=== PATIENT | male | born 1940 | race Caucasian/White ===

== ENCOUNTER 2018-04-07 13:07 | Inpatient (IN) | payer OTHER ==
[~2018-04-07] VITALS: Ht 172.7 cm; Wt 107.0 kg
[2018-04-07 13:08] VITALS: BP 116/67
[2018-04-07 13:28] LABS: ABSOLUTE BASOPHILS 0.1 thou/uL (0.0-0.2); ABSOLUTE EOSINOPHILS 0.1 thou/uL (0.0-0.7); ABSOLUTE LYMPHOCYTES 2.5 thou/uL (0.8-5.3); ABSOLUTE MONOCYTES 0.8 thou/uL (0.0-1.2); ABSOLUTE NEUTROPHILS 4.5 thou/uL (1.6-8.1); BASOPHILS 0.8 %; EOSINOPHILS 1.1 %; HEMATOCRIT 44.8 % (42.0-52.0); HEMOGLOBIN 14.9 gm/dL (14.0-18.0); MCH 27.1 pg (26.0-34.0); MCHC 33.2 g/dL (28.0-37.0); MCV 81.7 fL (80.0-100.0); MONOCYTES 9.8 %; MPV 7.8 fl. (7.2-11.1); NUCLEATED RBCS 0 /100WBC; PLATELET COUNT* 179 thou/uL (150-400); POLYS 57.3 %; RBC 5.48 mil/uL (4.50-6.00); RDW-CV 13.8 % (10.5-14.5); WBC 7.9 thou/uL (4.0-11.0)
[2018-04-07 13:34] LABS: CALCIUM 8.6 mg/dL (8.5-10.1); CREATININE 1.3 mg/dL (0.6-1.3); POTASSIUM 3.6 mmol/L (3.5-5.1)
[2018-04-07 13:35] LABS: INR 1.2; PROTIME 11.4 Seconds (9.20-11.50)
[2018-04-07 13:44] LABS: ALBUMIN 3.1 g/dL (3.4-5.0); TOTAL BILIRUBIN 0.6 mg/dL (<0.1-1.0); TOTAL PROTEIN 6.4 g/dL (6.4-8.2); TROPONIN-I LEVEL 0.09 ng/mL (<0.06)
[2018-04-07] MEDS ORDERED: LISINOPRIL20 MG PO (16:31)
[2018-04-07] MEDS ORDERED: ATORVASTATIN CA40 MG PO (16:31)
[2018-04-07] MEDS ORDERED: PROTONIX40 M1 PO (16:31)
--- NOTE | 2018-04-07 16:32 | EKG ---
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
[2018-04-07 17:47] VITALS: BP 126/72
[2018-04-07 17:53] VITALS: BP 129/77
[2018-04-07 19:19] LABS: CHOLESTEROL 219 mg/dL (<200); HDL CHOLESTEROL 34 mg/dL (>40); LDL CHOLESTEROL 140 mg/dL (<100); TC:HDL 6.4 Ratio (Not establshd); TRIGLYCERIDE 227 mg/dL (<150); VLDL 45 mg/dL (<40)
[2018-04-07 19:20] LABS: SERUM ASSESSMENT Clear
--- NOTE | 2018-04-07 19:26 | NUR ---
SAM RESTING IN BED. ADMISSION COMPLETED. ORDERS RECEIVED. REPORT GIVEN TO DENTAL LABORATORY WORKER RN. HOURLY ROUNDNIG FOR PATIENT SAFETY.
[2018-04-07 20:00] VITALS: BP 117/70
[2018-04-08] VITALS (14 sets, daily range): BP systolic 97–147; BP diastolic 60–106
--- NOTE | 2018-04-08 04:42 | NUR ---
PT ALERT ORIENTED. R EYE PROSTHETIC CURRENTLY OUT AND PLACED ON SINK. TELEMETRY SHOW SR. BED ALARM ON. UP WITH STAND BY ASSIST. STEADY GAIT. DENIES PAIN. WILL CONTINUE TO MONITOR.
--- NOTE | 2018-04-08 09:09 | NUR ---
PT CARE ASSUMED AROUND 0700. ASSESSMENT COMPLETED. PT DENIES PAIN. PT MADE NPO FOR CARDIOLOGY CONSULT. CARDIOLOGY OKAYED PT FOR CLD, BUT RENAL US IS ORDERED NOW. SO WILL MAINTAIN NPO UNTIL THAT IS DONE
[2018-04-08 11:59] LABS: BE 0.6 mmol/L (-2 to +3); HCO3 25.9 mmol/L (22.0-26.0); PO2 64.2 mmHg (75.0-100.0); pH 7.388 (7.340-7.450)
--- NOTE | 2018-04-08 12:01 | NUR ---
Pt out of room for heart cath, the ultra sound, CM to follow up later
[2018-04-08 12:02] LABS: BE 1.9 mmol/L (-2 to +3); HCO3 27.7 mmol/L (22.0-26.0); PCO2 VENOUS 47.1 mmHg (41.0-51.0)
[2018-04-08 12:08] LABS: PO2 VENOUS 34.9 mmHg (35.0-45.0)
--- NOTE | 2018-04-08 13:15 | 2DMMODE ---
[place] [address] 2 D/M-MODE ECHOCARDIOGRAM Name: KRIS DURHAM Room: [address] IN [facility]#: [id number] Admission: 04/07/18 Attend Phys: Siddhartha See Discharge: Date of : 44 Date of Service: 04/08/18 1315 Report #: [id number] THIS REPORT FOR: //name// APPROVED REPORT Study performed: 04/08/2018 09:25:52 EXAM: Comprehensive 2D, Doppler, and color-flow Echocardiogram Patient Location: In-Patient Room #: [facility] Status: routine BSA: 2.17 HR: 75 bpm BP: 136/71 mmHg Rhythm: NSR Other Information Study Quality: Good Indications Pulmonary Embolism 2D Dimensions LVEF(%): 32.12 (>50%) IVSd: 15.74 (7-11mm) LVOT Diam: 19.76 (18-24mm) LVDd: 51.88 mm PWd: 12.54 (7-11mm) Ascending Ao: 32.87 (22-36mm) LVDs: 43.95 (25-40mm) Aortic Root: 36.09 mm Madden's LVEF: 32.12 % Volumes Left Atrial Volume (Systole) LA ESV Index: 38.90 mL/m2 Aortic Valve AoV Peak Riley.: 3.97 m/s AO Peak Gr.: 62.98 mmHg LVOT Max P.39 mmHg AO Mean Gr.: 41.53 mmHg LVOT Mean P.34 mmHg LVOT Max V: 0.77 m/s AO V2 VTI: 95.91 cm LVOT Mean V: 0.54 m/s RALÚ (VTI): 0.56 cm2 LVOT V1 VTI: 17.52 cm AI Vinton: 2.21 m/s2 AI PHT: 531.27 [place] [address] 2 D/M-MODE ECHOCARDIOGRAM Name: KRIS DURHAM Room: [address] IN [facility].#: [id number] Admission: 04/07/18 Attend Phys: Siddhartha See Discharge: Date of : 44 Date of Service: 04/08/18 1315 Report #: [id number] Mitral Valve E/A Ratio: 0.58 MV Decel. Time: 215.48 ms MV E Max Riley.: 0.70 m/s MV PHT: 62.49 ms MVA (PHT): 3.52 cm2 TDI E/Lateral E': 8.75 E/Medial E': 11.67 Medial E' Riley.: 0.06 m/s Lateral E' Riley.: 0.08 m/s Pulmonary Valve PV Peak Riley.: 0.95 m/s PV Peak Gr.: 3.64 mmHg Left Ventricle The left ventricle is normal size. There is global hypokinesis of the left ventricle. Mild to moderate concentric left ventricular hypertrophy. Left ventricular systolic function is severely decreased. LVEF is 25-30%. Grade I - abnormal relaxation pattern. Right Ventricle The right ventricle is normal size. The right ventricular systolic function is normal. Atria Left atrium is moderately dilated. The right atrium size is normal. Aortic Valve Severe aortic valve sclerosis. Trace aortic regurgitation. Severe aortic stenosis. Mitral Valve The mitral valve is normal in structure. Mild mitral regurgitation. No evidence of mitral valve stenosis. Tricuspid Valve The tricuspid valve is normal in structure. Trace tricuspid regurgitation. Pulmonic Valve Pulmonic valve is not well visualized. There is no pulmonic [place] [address] 2 D/M-MODE ECHOCARDIOGRAM Name: KRIS DURHAM Room: [address] IN [facility]#: [id number] Admission: 04/07/18 Attend Phys: Siddhartha See Discharge: Date of : 44 Date of Service: 04/08/18 1315 Report #: [id number] Great Vessels The aortic root is normal in size. IVC is normal in size and collapses with >50% inspiration Pericardium There is no pericardial effusion. <Conclusion> Mild to moderate concentric left ventricular hypertrophy. LVEF is 25-30%. Left atrium is moderately dilated. Severe aortic stenosis. Mild mitral regurgitation. <ELECTRONICALLY SIGNED> By: Bandar Garcia MD, FACC 04/08/18 1315 1315 131 Bandar Garcia MD, FACC /INF
--- NOTE | 2018-04-08 15:32 | CARD ---
[address] [address] CARDIAC CATH REPORT Name: MARVAKRIS Seth Room: [address] IN [facility]#: [id number] Admission: 04/07/18 Attend Phys: Dre العلي Discharge: Date of : 44 Report #: [id number] THIS REPORT FOR: //name// APPROVED REPORT Study performed: 04/08/2018 10:32:40 Patient Details Patient Status: In-Patient Room #: 214 The patient is a 77 year-old male Event Personnel Bandar Garcia Livestock Producer, Arlene Morley RN Sampler Radioactive Waste, Jerica Pino RN Sampler Radioactive Waste, Marietta Knutson Monitor, Blade Gaytan Scrub Procedures Performed Art Access - R femoral artery* , Selective Right and Left Coronary AngiographyVen Access - R femoral vein Right and Left Heart Cath Lt Vent/Cors/Grafts [id number] Supravalvular Aortography Injection [id number] ISVA Indication Syncope, Murmur Risk Factors Arterial Hypertension, Hypercholesterolemia Procedure Narrative The patient was brought electively to the Cardiac Catheterization Laboratory and was prepped and draped in a sterile manner. The right femoral was infiltrated with 2% Lidocaine subcutaneous anesthesia. A Right Heart Catheterization was performed with a 7 Fr. Vaughn-Damian catheter and pressure were recorded. Cardiac outputs were obtained by the Thermal Dilution method. A 7Fr x 11cm Kiarra sheath was inserted into the right femoral artery. Coronary angiography was performed using coronary diagnostic catheters. The right coronary system was accessed and visualized with a Diagnostic JR 4 catheter. The left coronary system was accessed and visualized with a Diagnostic JL4 catheter. The left ventricle was accessed and visualized with a dual lumen pigtail catheter. Left ventricular/Aortic Valve gradient assessed via alexis catheter with simultaneous pressures. Left ventriculogram was performed in ENNIS projection. An aortogram of the ascending aorta was performed. Closure device was deployed with a 6 Fr MynxGrip 6/7F. Hemostasis was obtained [place] [address] CARDIAC CATH REPORT Name: KRIS DURHAM Room: [address]#: [id number] Admission: 04/07/18 Attend Phys: Dre العلي Discharge: Date of : 44 Report #: [id number] following sheath removal without any complications. The patient tolerated the procedure well and there were no complications associated with the procedure. There was no hematoma. Intraoperative Conscious Sedation Sedation start time: 11:23 Case end Time: 12:15 Versed 2 mg Fluoro Time: 4.4 minutes Dose: DAP 56904 cGycm2 986.91 mGy Contrast Type and Amount: Omnipaque 130 ml Coronary Angiography The patient's coronary anatomy is right dominant. Diagnostic Cath Left Main 30% mid stenosis LAD 50% mid stenosis Diagonal 2 50% ostial stenosis and 80% after bifurcating L ALAN 80% mid stenosis Right Coronary 30% proximal stenosis Ramus 0% stenosis Left Ventriculography The left ventricular ejection fraction is estimated to be 25-30%. There is no mitral insufficiency. Hemodynamics The right atrial mean pressure is 4 mmHg. The right ventricular pressure is 36/5 mmHg. The pulmonary artery pressure is 28/10 mmHg with a mean of 15 mmHg. The mean pulmonary capillary wedge pressure is 12 mmHg. The aortic pressure is 121/72 mmHg with a mean of mmHg. The left ventricular pressure is 157/11 mmHg with a mean of mmHg. The left ventricular end diastolic pressure is 12 mmHg. Pullback from the left ventricle to the aorta revealed a 40 mm gradient across the aortic valve. PaO2 saturation is 71.00 %. Arterial saturation is 92.00 %. The cardiac output using thermo method is 4.93 L/min. The cardiac index using thermo method is 2.26 L/min/m2. The mean aortic valve gradient is 36.78 mmHg. The aortic valve area is 0.8 cm2. Conclusion 1. Severe cardiomyopathy 2. Severe aortic stenosis 3. [place] [address] CARDIAC CATH REPORT Name: KRIS DURHAM Room: [address] IN M.R.#: [id number] Admission: 04/07/18 Attend Phys: Dre العلي Discharge: Date of : 44 Report #: [id number] Recommendations Valve Surgery CABG Medications Administered 1. recommend discharge with LifeVest <ELECTRONICALLY SIGNED> By: Bandar Garcia MD, FACC 04/08/18 1531 1531 1531Djean carlos Garcia MD, [facility] /INF
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
[2018-04-09] VITALS: BP 125/69
[2018-04-09 02:06] LABS: GLYCOHEMOGLOBIN (HGB A1C) 5.7 % (4.8-5.6)
[2018-04-09 04:00] VITALS: BP 111/60
--- NOTE | 2018-04-09 06:57 | NUR ---
ASSUMED PT CARE AT 19:15 REPORT RECEIVED FROM NURSE. PT IS ALERT AWAKE, ORIENTED X4. SINUS RYTHM ON THE MONITOR. VITAL SIGN S WITHIN NORMAL LIMIT. O2 SATURATION 95% ON RA. IV LINE PATENT. R GROIN AREA IS DRY, DRESING INTACT NO COMPLAIN OF PAIN EXCEPT FOR HEADACHE LAST NIGHT. TYLENOL WAS GIVEN FOR RELIEF. PT SLEPT WELL DURING NIGHT AND SAYS HE NEEDS A SHOWER THIS AM.
--- NOTE | 2018-04-09 07:25 | NUR ---
CHANGE OF SHIFT BEDSIDE REPORT GIVEN PATIENT SEEN AT BEDSIDE IN BED AND RESTING NO REQUESTS AT THIS TIME ASSUMED PATIENT CARE
[2018-04-09 07:45] VITALS: BP 117/79
[2018-04-09 08:00] VITALS: BP 150/113
--- NOTE | 2018-04-09 15:17 | NUR ---
CM ATTEMPTED TO SEE THE PATIENT TO ASSESS AND DISCUSS DISCHARGE PLANNING NEEDS. PATIENT HAVING EEG DONE AT THIS TIME. CM WILL ATTEMPT TO ASSESS PATIENT AT ANOTHER TIME.
[2018-04-09 16:00] VITALS: BP 120/78
[2018-04-09] MEDS ORDERED: ASPIR 8181 M1 PO (18:32)
[2018-04-09] MEDS ORDERED: ALDACTONE25 MG PO (18:37)
[2018-04-09] MEDS ORDERED: CARVEDILOL3.125 MG PO (18:38)
[2018-04-09] MEDS ORDERED: XARELTO15 MG PO (18:42)
[2018-04-09 18:48] VITALS: BP 117/79
--- NOTE | 2018-04-09 19:30 | NUR ---
PATIENT DCD TO HOME ALL DC INSTRUCTIONS GIVEN AND ACKNOWLEDGED AND SIGNED COPIES GIVEN IV AND HEART MONITOR REMOVED PERSONAL BELONGINGS RETURNED ASSISTED OUT VIA WC GOOD CONDITION TO WAITING CAR
--- NOTE | 2018-04-11 14:39 | NUR ---
Spoke wit the patient by phone, states he is doing well, no chest pain or shortness of breath, his weight has been stable, is following a low salt diet, shared the heart healthy diet book with his , does not have his life vest yet, is working with the [employer] on getting his vest, has a follow up appointment with Dr. Mattson DRY CAN TENDER on wednesday04/15/18, has no questions for me at this time.
--- NOTE | 2018-04-13 12:20 | EEG ---
[address] [address] EEG STUDY REPORT Name: KRIS DURHAM Room: [address] IN M.R.#: [id number] Admission: 04/07/18 Attend Phys: Dre العلي Discharge: 04/09/18 Date of : 44 Report #: [id number] THIS REPORT FOR: //name// CC: Teo Jasso Siddhartha See DATE OF SERVICE: 04/09/2018 This patient is being evaluated for syncope. EEG was done by placing the electrode by standard 10-20 system of electrode placement. Both referential and sequential montages were used for recording. Background activity in this patient's EEG is about 10 Hz and 40 microvolt. This is a symmetrical activity. Moderate amount of artifact is present. So, part of the EEG is not interpretable. The patient does become drowsy that is associated with bilateral slowing. Photic stimulation is unremarkable. Throughout the record, no active epileptiform activity was noticed. IMPRESSION: This patient's EEG does not demonstrate any clear-cut electrophysiological abnormality. <ELECTRONICALLY SIGNED> By: Andres Morel MD 04/13/18 1220 2138 [id number] Morel MD /nt
--- NOTE | 2018-04-13 12:20 | CON ---
[address] [address] CONSULTATION Name: KRIS DURHAM Room: [address] IN .R.#: [id number] Admission: 04/07/18 Attend Phys: Dre العلي Discharge: 04/09/18 Date of : 44 Report #: [id number] THIS REPORT FOR: //name// CC: Teo See DATE OF SERVICE: 04/09/2018 HISTORY OF PRESENT ILLNESS: This is a 77-year-old male patient who was seen by me this morning. I talked to Dr. Carranza and I talked to the nurses looking after this patient. This patient was seen by me for evaluation for any neurological etiology for the patient's passing out spell. He indicated that it happened twice. He was outside, but then he came inside and then passed out. He did not have any tonic-clonic activity. It lasted just for a few seconds. He was able to lower himself down and he did not fall. He did not injure himself. He had 2 of these episodes. He is being evaluated by Cardiology. It looks like his ejection fraction is low and he has a severe aortic stenosis. They are going to manage him as an outpatient. REVIEW OF SYSTEMS: Indicate this patient had 2 of these episodes. He did not have any prior episodes of passing out. He denies any stroke. 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 He had a history of stomach ulcer and hypertension. He did have appendectomy in the past and he is not complaining of any new ENT, respiratory, GI, , musculoskeletal, constitutional, dermatological, hematological, psychiatric, throat, allergic symptom associated with present symptomatology. PAST MEDICAL HISTORY: Negative for stroke. FAMILY HISTORY: Negative for any early age stroke. SOCIAL HISTORY: This patient has smoked in the past, but he does not do it now and he does not drink alcohol. PHYSICAL EXAMINATION: NEUROLOGIC: Indicates he is alert. He is responsive. He can follow simple commands. His speech, concentration, fund of knowledge and memory is at his baseline. Cranial nerve examination 2-12 looks unremarkable except for the fact that he does have an artificial eye, which is old. He has a symmetrical strength, sensation, reflexes in all 4 extremities. He does not have any meningeal sign. There is no cerebellar sign. There is no carotid bruit. GENERAL: He is a reasonably well-developed individual who does not have any dysmorphic features of eyes, ears and face except artificial eye on the right side. His vision and hearing looks adequate with the left . EXTREMITIES: Pulses are palpable. He has no edema, cyanosis or jaundice. HEART: Does show murmur, but that is being [place] [address] CONSULTATION Name: KRIS DURHAM Room: [address] IN [facility]#: [id number] Admission: 04/07/18 Attend Phys: Dre العلي Discharge: 04/09/18 Date of : 44 Report #: [id number] RESPIRATORY: There is no respiratory difficulty or rhonchi on either side. VITAL SIGNS: Blood pressure is 150/113, respirations 19, pulse is 80, temperature is 98.7. LABORATORY DATA: His sodium is normal, but his lipid profile is still pretty significantly abnormal. He indicated he is on statin. His MRI studies were ordered this morning and were reviewed and his EEG was reviewed. They are basically looks unremarkable. IMPRESSION: I do not believe the etiology for the patient's symptoms were neurological. I think his workup and management will be done by Cardiology. He does have still significant dyslipidemia, which also need to be addressed by his primary care and intake coordinator. I discussed the situation with the patient in detail and he understood that. My recommendation is that he does not need any further neurological workup. Presently, the management and evaluation should depend upon the Cardiology. His restrictions will also be decided by Cardiology, but it is desirable and it was recommended that he should not drive until he is released by his Cardiology as well as family physician and take precautions, which can injure him if he has another spell. I do not think he needs any Neurology followup, but he does need Cardiology and other followup and I wrote an order for him to be dismissed from neurological perspective. Thank you very much for this referral. <ELECTRONICALLY SIGNED> By: Andres Morel MD 04/13/18 1220 1746 1944Pcristofer Morel MD /nt
== END 2018-04-09 19:30 | disposition home or self-care (01) | DRG 280 ==
LOC: M.ERS 13:07 → M.2W 15:54 → M.TBA-ER 15:54 → M.2W 17:46
PROVIDERS: Emergency Medicine; ADMIT Internal Medicine
PROC: B2111ZZ Fluoroscopy of Multiple Coronary Arteries using Low Osmolar Contrast (ICD-10-PCS; principal; 2018-04-08)
PROC: B2151ZZ Fluoroscopy of Left Heart using Low Osmolar Contrast (ICD-10-PCS; principal; 2018-04-08)
PROC: 4A023N7 Measurement of Cardiac Sampling and Pressure, Left Heart, Percutaneous Approach (ICD-10-PCS; principal; 2018-04-08)
DX: I21.4 Non-ST elevation (NSTEMI) myocardial infarction (principal); J96.01 Acute respiratory failure with hypoxia; I26.99 Other pulmonary embolism without acute cor pulmonale; I42.9 Cardiomyopathy, unspecified; N18.9 Chronic kidney disease, unspecified; I12.9 Hypertensive chronic kidney disease with stage 1 through stage 4 chronic kidney disease, or unspecified chronic kidney disease; E78.5 Hyperlipidemia, unspecified; I35.0 Nonrheumatic aortic (valve) stenosis; J42 Unspecified chronic bronchitis; I25.10 Atherosclerotic heart disease of native coronary artery without angina pectoris; K21.9 Gastro-esophageal reflux disease without esophagitis; Z87.891 Personal history of nicotine dependence; Z90.49 Acquired absence of other specified parts of digestive tract; Z79.899 Other long term (current) drug therapy

== ENCOUNTER 2020-11-30 10:31 | Inpatient (IN) | payer BC ==
[~2020-11-30] VITALS: Ht 182.9 cm; Wt 87.9 kg
--- NOTE | ~2020-11-30 | EMS ---
[address] [place] [address] EMS Patient Care Report Name: KRIS DURHAM Room: [address] IN [facility]#: [id number] Admission: 11/30/20 Attend Phys: Melania Mooney Discharge: Date of : 44 Report #: [id number] THIS REPORT FOR: //name// Report Transmitted: 11/30/2020 15:20 EMS Care Summary [facility] Incident [id number] @ 11/30/2020 09:58 Incident Location [address] [place] [address] Patient KRIS DURHAM Male, 80 Years 1940 Patient Address [address] [place] [address] Patient History Hypertension (HTN),Hyperlipidemia,Gastro-Esophageal Reflux Disease (GERD),Cardiac - Stent, Patient Allergies No known allergies, Patient Medications Pantoprazole, Xarelto, Metoprolol, Chief Complaint Chest Pain Disposition Transported No Lights/[facility] Dispatch Reason Stroke/CVA Transported To [facility] Narrative Engine 2 and Med 1 were dispatched for a [age] year-old male c/o chest pain. Upon arrival, patients met us at the door and directed us to a back bedroom where the patient was lying supine on the bed with snoring respirations [address] [place] [address] EMS Patient Care Report Name: KRIS DURHAM Room: [address] IN [facility]#: [id number] Admission: 11/30/20 Attend Phys: Melania Mooney Discharge: Date of : 44 Report #: [id number] and dried blood on the side of his mouth. Patient's reported that she saw him around 7AM and he was c/o severe chest pain. He told his he would be fine and let him lay there for awhile. She went to check on him and found him unresponsive and called 911. Patient was placed on Oxygen via NRB at 15 lpm, patient's blood glucose was obtained with a reading of 185mg.dL, patient was placed on the school bus monitor and a 12 lead was obtained and it shown NSR with occasional PVC's. 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 Patient's denied him falling recently. Patient was wrapped in the blanket he was laying on and moved to the stretcher and secured via seatbelts. Patient was moved into the ambulance without incident. In the ambulance, IV access was attempted but patient was combative. A saline lock was obtained in the patients right AC with a 20 GA IV catheter and secured with coban. Med 1 went en route to [facility]. Patient began to become more coherent in transport and denied being in any pain but was still not able to answer any other questions. Hospital report was given via cell phone and the hospital was notified of a Code Stroke with no questions or orders requested or received. Med 1 arrived at the hospital. Patient was taken directly to CT Scan. Patient care was transferred to the ER staff in the CT room. Med 1 returned back into service. [id number] Pricila Initial Vitals @10:31 @10:07 @10:44 @10:43P: 85,SpO2: 98, @10:04P: 82,BP: 137/55,SpO2: 96, @10:43P: 82,BP: 99/67,SpO2: 98, @10:35P: 88,GCS: 10,Glucose: 185,SpO2: 97, @10:14P: 98,R: 16,BP: 116/84,GCS: 9,SpO2: 96,Revised Trauma: 11, @10:40P: 81,BP: 117/51,SpO2: 96, @10:34P: 88,SpO2: 97, @10:19P: 94, @10:43 Assessments @10:36MENTAL:Combative,Unresponsive,SKIN:HEENT:Eyes: Right: Blind,Eyes: Left: Constricted,Head/Face: Drainage,Neck/Airway: Stridor,LUNG SOUNDS:General: No Abnormalities,Left Upper: No Abnormalities,Right Upper: No Abnormalities,Left Lower: No Abnormalities,Right Lower: No Abnormalities,ABDOMEN:General: [place] [address] EMS Patient Care Report Name: KRIS DURHAM Room: [place] [address] ADM IN [facility].#: [id number] Admission: 11/30/20 Attend Phys: Melania Mooney Discharge: Date of : 44 Report #: [id number] Abnormalities,Left Upper: No Abnormalities,Right Upper: No Abnormalities,Left Lower: No Abnormalities,Right Lower: No Abnormalities,PELVIS//GI:EXTREMITIES:Left Arm: No Abnormalities,Right Arm: No Abnormalities,Left Leg: No Abnormalities,Right Leg: No Abnormalities,PULSE:NEURO:No Abnormalities, Impression Stroke Procedures @11:11Saline Lock cc (20 ga) Site: Antecubital-LeftResponse: UnchangedFailed@11:12Saline Lock 10cc (20 ga) Site: Antecubital-RightResponse: UnchangedSucceeded@10:2612-Lead ECG@10:0712-Lead ECG@10:4312-Lead ECG@10:3112-Lead ECG@10:4412-Lead ECG Timeline 09:58,Call Received 09:58,Dispatched 09:58,En Route 10:00,On Scene 10:01,At Patient 10:04,BP: 137/55 M,PULSE: 82,RR: R,SPO2: 96 Ox,ETCO2: ,BG: ,PAIN: ,GCS: , 10:07,12-Lead ECG, 10:07,BP: / M,PULSE: ,RR: R,SPO2: Ox,ETCO2: ,BG: ,PAIN: ,GCS: , 10:14,BP: 116/84 M,PULSE: 98,RR: 16 R,SPO2: 96 Ox,ETCO2: ,BG: ,PAIN: ,GCS: 9, 10:19,BP: / M,PULSE: 94,RR: R,SPO2: Ox,ETCO2: ,BG: ,PAIN: ,GCS: , 10:23,Depart Scene 10:26,12-Lead ECG, 10:31,12-Lead ECG, 10:31,BP: / M,PULSE: ,RR: R,SPO2: Ox,ETCO2: ,BG: ,PAIN: ,GCS: , 10:34,BP: / M,PULSE: 88,RR: R,SPO2: 97 Ox,ETCO2: ,BG: ,PAIN: ,GCS: , 10:35,BP: / M,PULSE: 88,RR: R,SPO2: 97 Ox,ETCO2: ,B,PAIN: ,GCS: 10, 10:40,BP: 117/51 M,PULSE: 81,RR: R,SPO2: 96 Ox,ETCO2: ,BG: ,PAIN: ,GCS: , 10:43,12-Lead ECG, 10:43,BP: / M,PULSE: ,RR: R,SPO2: Ox,ETCO2: ,BG: ,PAIN: ,GCS: , 10:43,BP: 99/67 M,PULSE: 82,RR: R,SPO2: 98 Ox,ETCO2: ,BG: ,PAIN: ,GCS: , 10:43,BP: / M,PULSE: 85,RR: R,SPO2: 98 Ox,ETCO2: ,BG: ,PAIN: ,GCS: , 10:44,At Destination 10:44,12-Lead ECG, 10:44,BP: / M,PULSE: ,RR: R,SPO2: Ox,ETCO2: ,BG: ,PAIN: ,GCS: , 11:11,Saline Lock cc 20 ga Site: Antecubital-Left,Response: UnchangedFailed, 11:12,Saline Lock 10cc 20 ga Site: Antecubital-Right,Response: UnchangedSucceeded, 11:17,Call Closed 11:17,[place] [address] EMS Patient Care Report Name: KRIS DURHAM Room: [place] [address] ADM IN [facility]#: [id number] Admission: 11/30/20 Attend Phys: Melania Mooney Discharge: Date of : 44 Report #: [id number] Disclaimer v1.1 Copyright 2021 [employer] This EMS Care Summary contains data elements from the applicable legal record (which may be displayed differently). It is designed to provide pertinent information for the following purposes: continuity of care, clinical quality, and state data reporting. The complete legal record is available to ED staff and administrators of the receiving hospital in [employer] Patient Tracker. All data is provided "as is."
[~2020-11-30 10:31] MED LIST: ALDACTONE25 MG PO; ASPIR 8181 M1 PO; ATORVASTATIN CA40 MG PO; CARVEDILOL3.125 MG PO; LISINOPRIL20 MG PO; PROTONIX40 M1 PO; XARELTO20 MG PO
[2020-11-30 10:44] VITALS: BP 97/42
[2020-11-30] MEDS ORDERED: ENTRESTO 49 MG1 EACH PO (10:57)
[2020-11-30] MEDS ORDERED: TOPROL XL50 MG PO (10:58)
[2020-11-30 11:05] LABS: HEMATOCRIT 49.8 % (42.0-52.0); HEMOGLOBIN 16.3 gm/dL (14.0-18.0); MCH 27.1 pg (26.0-34.0); MCHC 32.8 g/dL (28.0-37.0); MCV 82.5 fL (80.0-100.0); MPV 7.1 fl. (7.2-11.1); NUCLEATED RBCS 0 /100WBC; PLATELET COUNT* 195 thou/uL (150-400); RBC 6.03 mil/uL (4.50-6.00); RDW-CV 13.6 % (10.5-14.5); WBC 13.7 thou/uL (4.0-11.0)
[2020-11-30 11:13] LABS: APTT 24.9 Seconds (25.0-31.3); CALCIUM 9.8 mg/dL (8.5-10.1); CREATININE 1.9 mg/dL (0.6-1.3); INR 1.1; PROTIME 12.1 Seconds (9.20-11.50)
[2020-11-30 11:17] LABS: ALBUMIN 3.7 g/dL (3.4-5.0); TOTAL BILIRUBIN 0.7 mg/dL (<0.1-1.0); TOTAL PROTEIN 7.2 g/dL (6.4-8.2)
[2020-11-30 11:41] LABS: ABSOLUTE LYMPHOCYTES 1.4 thou/uL (0.8-5.3); ABSOLUTE MONOCYTES 0.5 thou/uL (0.0-1.2); ABSOLUTE NEUTROPHILS 11.8 thou/uL (1.6-8.1); PLATELET ESTIMATE ADEQUATE
[2020-11-30 11:42] LABS: ANISOCYTOSIS 1+; POIKILOCYTOSIS 1+
[2020-11-30 16:05] VITALS: BP 103/65
[2020-11-30 20:10] VITALS: BP 103/65
[2020-11-30 23:55] VITALS: BP 138/51
[2020-12-01 04:00] VITALS: BP 141/64
[2020-12-01 04:45] LABS: CHOLESTEROL 131 mg/dL (<200); HDL CHOLESTEROL 33 mg/dL (>40); LDL CHOLESTEROL 80 mg/dL (<100); TRIGLYCERIDE 91 mg/dL (<150); VLDL 18 mg/dL (<40)
[2020-12-01 05:16] LABS: SERUM ASSESSMENT CLEAR
--- NOTE | 2020-12-01 07:36 | NUR ---
ASSUMED PT'S CARE @ ABOUT 1999. PT ADMITTED TO RM 204 FROM ER. ORIENTED TO RM AND CALL LIGHT. PT ALERT AND ORIENTED X4. FORGETFUL. NIH SCORE OF 3. COMPLAINTS OF SHOULDER PAIN. NORCO GIVEN. PT NOW NPO. FALL PRECAUTION IN PLACE. CALL LIGHT WITHIN REACH. PT CALL OUT APPRIOPRATELY. CALL LIGHT WITHIN REACH. HOURLY ROUNDINGS MADE. WILL CONTINUE TO MONITOR.
[2020-12-01 08:00] VITALS: BP 152/72
[2020-12-01 09:24] LABS: ALBUMIN 3.5 g/dL (3.4-5.0); CALCIUM 9.5 mg/dL (8.5-10.1); CREATININE 1.5 mg/dL (0.6-1.3); POTASSIUM 3.8 mmol/L (3.5-5.1); TOTAL PROTEIN 6.4 g/dL (6.4-8.2)
[2020-12-01 12:17] VITALS: BP 139/75
[2020-12-01 15:24] LABS: URINE BILIRUBIN NEGATIVE (Negative); URINE BLOOD NEGATIVE (Negative); URINE CLARITY CLEAR; URINE COLOR YELLOW; URINE GLUCOSE-RANDOM NEGATIVE (Negative); URINE KETONES TRACE (Negative); URINE LEUKOCYTES NEGATIVE (Negative); URINE NITRITE NEGATIVE (Negative); URINE PROTEIN NEGATIVE (Negative); URINE SPECIFIC GRAVITY 1.025 (1.005-1.030); URINE UROBILINOGEN 0.2 E.U./dl (0.2-1.0)
[2020-12-01 16:16] VITALS: BP 121/70
--- NOTE | 2020-12-01 17:13 | NUR ---
PATIENT ALERT AND ORIENTED X 4. VITAL SIGNS STABLE ON ROOM AIR. UP WITH STAND BY ASSISTANCE TO THE BATHROOM. IV PATENT AND SALINE LOCKED. SINUS RHYTHM WITH BUNDLE BRANCH BLOCK ON THE MONITOR. DENIES PAIN AND NAUSEA AT THIS TIME. FALL PRECAUTIONS IN PLACE AND BED ALARM ON. HOURLY ROUNDS MAINTAINED THROUGHOUT THE SHIFT. CALL LIGHT WITHIN REACH.
[2020-12-01 20:00] VITALS: BP 145/70
[2020-12-02 00:34] VITALS: BP 146/80
[2020-12-02 04:48] VITALS: BP 148/75
--- NOTE | 2020-12-02 06:19 | NUR ---
ASSUMED PT'S CARE @ ABOUT 1900. PT ALERT AND ORIENTED. DID SHOW SOME CONFUSION. PT TOOK MEDS PER EMAR. REFUSED PAIN MED. AT ABOUT MIDNIGHT, PT GOT UP AND DRESSED WITH HIS BELONGINGS AT THE NURSING STATION, VOICING THAT HE WAS READY TO LEAVE. NURSING REORIENTED PT TO TIME. PT VOICED HE WAS TOLD THAT HE WOULD LEAVE TODAY AND HE THOUGHT IT WAS ALREADY MORNING. PT WENT BACK TO SLEEP. SLEPT WELL THIS SHIFT. PT HAS STEADY GAIT THIS SHIFT AND IS ABLE TO AMBULATE ON HIS OWN. ENCOURAGED TO CALL WHEN NEEDING ASSISTANCE. CALL LIGHT WITHIN REACH. WILL CONTINUE TO MONITOR.
[2020-12-02 08:01] VITALS: BP 178/76
--- NOTE | 2020-12-02 08:51 | NUR ---
ASSUMED CARE OF PT THIS AM AROUND 07- SOLE STAINER IN PLACE ORDERED, TRACING SR- UPON ASSESSMENT PT NOTED TO BE UP SITTING ON SIDE OF BED- PT A&O X4, FORGETFULL- CONT OF BOWEL AND BLADDER- UP AD-MYCHAL IN ROOM, STEADY GAIT NOTED- PT NOTED TO BE IRRITATED AT TIMES AND WANTS TO GO HOME- LCTA, RESP EVEN AND UN-LABORED- VSS, O2 SAT 96% ON RA- LCTA, RESP EVEN AND UN-LABORED- ABD SOFT/ROUND/NON-TENDER, BS X4 QUADS- LAST BM REPORTED 12/01/20- IV NOTED TO RIGHT FA INTACT AND SL- GOOD PO INTAKE NOTED THIS AM WITH BREAKFAST- PT REPORTS PAIN 04/17 TO LEFT SHOULDER WITH NOTED LIMITED ROM- CALL LIGHT AND PERSONAL BELONGINGS WITH IN REACH- ALL NEEDS MET AT THIS TIME
[2020-12-02 12:44] VITALS: BP 139/80
--- NOTE | 2020-12-02 13:06 | CON ---
[address] [address] CONSULTATION Name: KRIS DURHAM Room: [address] IN [facility]#: [id number] Admission: 11/30/20 Attend Phys: Melania Mooney Discharge: Date of : 44 Report #: [id number] THIS REPORT FOR: cc: Teo Jasso MD, Matthew D MD Bandar Garcia MD [facility] DATE OF SERVICE: 12/01/2020 CARDIOLOGY CONSULTATION HISTORY OF PRESENT ILLNESS: The patient is a 80-year-old white male, who I was asked to see in the hospital today after he became confused. The patient initially presented to [facility] in 04/2018. He had a long history of a heart murmur. He apparently had passed out at home. He was brought here to [facility] by ambulance. I was asked to see him in consultation. He was found to have evidence of aortic stenosis. I performed a cardiac catheterization on 04/08/2018 from the femoral approach. He was found to have evidence of severe aortic stenosis, diffuse CAD, and an ejection fraction that was estimated at 25-30%. It was recommended that he be considered for valve replacement and bypass surgery. He was discharged and eventually underwent bypass surgery and aortic valve replacement using a tissue valve at [facility]. Apparently, following the surgery, he had placement of a pacemaker. The patient is not very active at this time. He was brought to the Emergency Room yesterday. Apparently, the patient's found him confused and unresponsive. He had had no recent chest pain, shortness of breath, fever, cough, nausea, vomiting, diarrhea or bleeding. He was brought here by ambulance. He was somewhat combative. He was admitted for further evaluation and treatment. 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 He has a history of appendectomy, hypertension and hyperlipidemia. No diabetes. CURRENT MEDICATIONS: Consist of Entresto, metoprolol, Protonix, Lipitor, aspirin, Xarelto. He is no longer on Aldactone or carvedilol. ALLERGIES: He has no known drug allergies. FAMILY HISTORY: Negative for heart disease. SOCIAL HISTORY: He is . He and his live in [place], [place]. He used to work for [employer]. He quit smoking several years ago. Previous history of alcohol abuse years ago. REVIEW OF SYSTEMS: No history of stroke, liver disease [place] [address] CONSULTATION Name: KRIS DURHAM Room: [address]#: [id number] Admission: 11/30/20 Attend Phys: Melania Mooney Discharge: Date of : 44 Report #: [id number] had a skin cancer removed in the past. No psychiatric illness. PHYSICAL EXAMINATION: GENERAL: Elderly male, lying in bed. He appeared in no distress. VITAL SIGNS: He had a blood pressure of 106/50 with a pulse of 80, he is afebrile. HEENT: He was anicteric. Conjunctivae pink. Mucous membranes moist. NECK: Veins not distended. No carotid bruits. CHEST: Clear to auscultation. CARDIAC: Regular rate and rhythm. Grade 2 systolic ejection murmur. ABDOMEN: Soft. EXTREMITIES: Had no edema. Dorsalis pedis pulse cannot be palpated. SKIN: Cool and dry. DIAGNOSTIC DATA: ECG on admission showed a sinus rhythm with a right bundle-branch block. His workup yesterday in the Emergency Room, he had CT scan of the head without contrast that showed no acute abnormalities; chest x-ray showed normal heart size, clear lung summers; carotid Doppler study showed plaque with no significant stenosis. LABORATORY WORK: Sodium 143, creatinine 1.5. His liver function studies were normal. Troponin 0.06. BNP 2152. Cholesterol 131, triglyceride 91, HDL 33, LDL 80. His white blood cell count 13.7, hemoglobin 16.3. His COVID antigen stat test was negative. IMPRESSION AND RECOMMENDATIONS: 1. Altered mental status. Reason unclear. 2. Previous aortic valve replacement using a tissue valve. Recommend echocardiogram. 3. Cardiomyopathy. The patient is on Entresto and a beta davidson. 4. Hyperlipidemia. The patient is on a statin drug. 5. Previous bypass surgery. The patient does take an aspirin a day. 6. Use of Xarelto. Suspect history of atrial fibrillation. No history of bleeding. 7. Previous insertion of a pacemaker. Pacemaker for backup purposes only. <ELECTRONICALLY SIGNED> By: Bandar Garcia MD, FACC 12/02/20 1306 [id number] 25Bandar Garcia MD, FACC /nt
--- NOTE | 2020-12-02 13:47 | NUR ---
Pt is A&O. Resides at home with his . Normally active and independent. No DME. No hx of HH or SNF. Plan dc home today post EEG
--- NOTE | 2020-12-02 14:54 | EKG ---
[place] [address] ELECTROCARDIOGRAM REPORT Name: KRIS DURHAM Room: [address] IN [facility]#: [id number] Admission: 11/30/20 Attend Phys: Wilber Huddleston Discharge: Date of : 44 Date of Service: 11/30/20 1111 Report #: [id number] THIS REPORT FOR: //name// [facility] ED Test Date: 2020-11-30 Test Time: 11:11:51 Pat Name: KRIS DURHAM Department: Room: 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 : 1940 Requested By: Michael Browning Order Number: [id number] MD: Chang Zhang Measurements Intervals Hawkins Rate: 77 P: 4 TX: 171 QRS: 71 QRSD: 151 T: 33 QT: 448 QTc: 508 Interpretive Statements Pediatric ECG interpretation Sinus bradycardia Incomplete right bundle branch block Prolonged QT Compared to ECG 04/07/2018 13:14:08 Incomplete right bundle-branch block now present Prolonged QT interval now present Sinus rhythm no longer present T-wave abnormality no longer present Electronically Signed On 12-02-2020 14:54:35 MACHINE TOOL OPERATOR by Chang Zhang [email or web address] <ELECTRONICALLY SIGNED> By: Chang Zhang MD, FACC 12/02/20 1454 1111 1111 Chang Zhang MD, FAC /EPI
--- NOTE | 2020-12-02 16:32 | NUR ---
Cardiac Rehab. Heart Failure and heart healthy lifestyle education given to receptive patient using the Heart Failure folder and the heart healthy diet book. Has good understanding of education and states appreciation for the educational visit.
--- NOTE | 2020-12-02 16:56 | 2DMMODE ---
[place] [address] 2 D/M-MODE ECHOCARDIOGRAM Name: MARVAKRIS G Room: [address] IN [facility]#: [id number] Admission: 11/30/20 Attend Phys: Wilber Huddleston Discharge: Date of : 44 Date of Service: 12/02/20 1655 Report #: [id number] THIS REPORT FOR: cc: Teo Jasso MD, Matthew D MD Holkins,Garry Gottlieb MD [facility] ~ APPROVED REPORT Study performed: 12/02/2020 14:51:39 EXAM: Comprehensive 2D, Doppler, and color-flow Echocardiogram Patient Location: In-Patient Room #: 204 Status: routine BSA: 2.19 HR: 69 bpm BP: 178/76 mmHg Rhythm: NSR Other Information Study Quality: Good Indications CVA/TIA Echo Enhancing Agent Indication: Rule out Shunt Agent(s) / Amount(s) Used: Agitated Saline 10 cc 2D Dimensions IVSd: 11.16 (7-11mm) LVOT Diam: 19.14 (18-24mm) LVDd: 40.84 mm PWd: 12.15 (7-11mm) LVDs: 26.28 (25-40mm) Aortic Root: 27.76 mm Volumes Left Atrial Volume (Systole) LA ESV Index: 25.30 mL/m2 Aortic Valve AoV Peak Riley.: 2.18 m/s AO Peak Gr.: 18.93 mmHg LVOT Max P.38 mmHg AO Mean Gr.: 9.77 mmHg LVOT Mean P.52 [place] [address] 2 D/M-MODE ECHOCARDIOGRAM Name: KRIS DURHAM Room: [address]#: [id number] Admission: 11/30/20 Attend Phys: Wilber Huddleston Discharge: Date of : 44 Date of Service: 12/02/20 1655 Report #: [id number] LVOT Max V: 0.92 m/s AO V2 VTI: 39.55 cm LVOT Mean V: 0.56 m/s RAÚL (VTI): 1.59 cm2 LVOT V1 VTI: 21.91 cm Mitral Valve E/A Ratio: 1.22 MV Decel. Time: 341.33 ms MV E Max Riley.: 0.80 m/s MV PHT: 98.99 ms MVA (PHT): 2.22 cm2 TDI E/Lateral E': 6.15 E/Medial E': 5.71 Medial E' Riley.: 0.14 m/s Lateral E' Riley.: 0.13 m/s Pulmonary Valve PV Peak Riley.: 1.06 m/s PV Peak Gr.: 4.47 mmHg Left Ventricle The left ventricle is normal size. There is normal LV segmental wall motion. There is normal left ventricular wall thickness. Left ventricular systolic function is normal. The left ventricular ejection fraction is within the normal range. LVEF is 55-60%. Right Ventricle The right ventricle is normal size. The right ventricular systolic function is normal. Pacemaker lead is present in the right ventricle. Atria The left atrium size is normal. The interatrial septum is intact with no evidence for an atrial septal defect. The right atrium size is normal. Aortic Valve Mild aortic valve sclerosis. Bioprosthetic aortic valve is present. No aortic regurgitation is present. Mild aortic stenosis. Mitral Valve The mitral valve is normal in structure. There is no mitral valve regurgitation noted. No evidence of mitral valve stenosis. Tricuspid Valve The tricuspid valve is normal in structure. Unable to assess PA pressure. Trace [place] [address] 2 D/M-MODE ECHOCARDIOGRAM Name: KRIS DURHAM Room: [address] IN [facility].#: [id number] Admission: 11/30/20 Attend Phys: Wilber Huddleston Discharge: Date of : 44 Date of Service: 12/02/20 1655 Report #: [id number] Pulmonic Valve The pulmonary valve is normal in structure. There is no pulmonic valvular regurgitation. Great Vessels The aortic root is normal in size. IVC is normal in size and collapses >50% with inspiration. Pericardium There is no pericardial effusion. <Conclusion> The left ventricle is normal size. There is normal left ventricular wall thickness. Left ventricular systolic function is normal. The left ventricular ejection fraction is within the normal range. LVEF is 55-60%. The right ventricle is normal size. The left atrium size is normal. Mild aortic valve sclerosis. No aortic regurgitation is present. Mild aortic stenosis. The mitral valve is normal in structure. The tricuspid valve is normal in structure. IVC is normal in size and collapses >50% with inspiration. There is no pericardial effusion. There is normal LV segmental wall motion. Bioprosthetic aortic valve is present. <ELECTRONICALLY SIGNED> By: Garry Rowan MD, FACC 12/02/20 [phone] Garry Rowan MD, FACC /INF
[2020-12-02 17:12] VITALS: BP 139/80
--- NOTE | 2020-12-04 12:32 | EEG ---
[address] [address] EEG STUDY REPORT Name: KRIS DURHAM Room: [address] IN .R.#: [id number] Admission: 11/30/20 Attend Phys: Melania Mooney Discharge: 12/02/20 Date of : 44 Report #: [id number] THIS REPORT FOR: cc: Teo Jasso MD, Matthew D MD ~ Andres Canales MD DATE OF SERVICE: 12/02/2020 This patient is being evaluated for altered mental status. EEG was done by placing the electrode by standard 10-20 system of electrode placement. Both referential and sequential montages were used for recording. Background activity in this patient's EEG is about 9 Hz and 30 microvolt. It is a symmetrical activity. Photic stimulation was unremarkable. Throughout the record, no active epileptiform activity was noticed. IMPRESSION: This patient's EEG is intermixed with theta range slowing on both sides. That is a nonspecific abnormality, which can occur with drowsiness, effect of psychotropic medication, dementia, etc. Clinical correlation is recommended. <ELECTRONICALLY SIGNED> By: Andres Canales MD 12/04/20 1232 50 [id number] Canales MD /nt
--- NOTE | 2020-12-04 12:32 | CON ---
[facility] [address] [place] [address] CONSULTATION Name: KRIS DURHAM Room: [address] IN [facility].#: [id number] Admission: 11/30/20 Attend Phys: Melania Mooney Discharge: 12/02/20 Date of : 44 Report #: [id number] THIS REPORT FOR: cc: Teo Jasso MD, Matthew D MD ~ Khosla, Parveen K. MD DATE OF SERVICE: 12/01/2020 HISTORY OF PRESENT ILLNESS: This is a 80-year-old male patient who does not provide any reliable history. In fact, he says he does not remember what happened to him yesterday. He wanted me to call his and I called his and I do not get a very good history from her either. Per the history I get is that he woke up yesterday. He said he was not feeling good. He was feeling tired. He was complaining of pain all over the body. He has left shoulder issues, but that is going on for at least 2 months and maybe longer. The records indicate that he complained of chest pain earlier, but the does not know anything about it. The patient also says he does not remember having any chest pain. He was agitated and combative when he was in the ambulance, but his mentation has returned back to his baseline. REVIEW OF SYSTEMS: Positive for multiple things. He goes to [facility] for his Cardiology care. He has a pacemaker put in. He also has an artificial valve. The patient and the denies any spells like this, but I reviewed the patient's record in the computer and it looks like the patient had been admitted here in 2018 with similar spell and at that time, he had an MRI and MRA done and they were unremarkable. It is not certain when the pacemaker was put in and whether his pacemaker is compatible with MRI or not. I do not know whether the last MRIs were done when he had a pacemaker or not. When he came here, he was hypotensive. Hypotension has improved. His kidney function indicated that his GFR has significantly decreased since his last GFR and his creatinine has increased from 1.3 to 1.9. The last kidney function was done in 2018. He does have an artificial eye. He does not complain of any ENT, cardiac, respiratory, GI, , musculoskeletal, constitutional, dermatological, hematological, psychiatric, throat, allergic symptom associated with present symptomatology. PAST MEDICAL HISTORY: Positive for similar spells. FAMILY HISTORY: Negative for early age strokes. SOCIAL HISTORY: Both patient and the says that [place] [address] CONSULTATION Name: KRIS DURHAM Room: [address] IN [facility]#: [id number] Admission: 11/30/20 Attend Phys: Melania Mooney Discharge: 12/02/20 Date of : 44 Report #: [id number] PHYSICAL EXAMINATION: NEUROLOGICAL: Indicate that this patient is alert, responsive. His speech looks intact. He feels his memory and fund of knowledge is unremarkable. Cranial nerve examinations indicate artificial right eye, but was otherwise unremarkable. His strength, sensation, reflexes and tone are symmetrical on both sides. He has normal position sense on both sides. There is no yarwik-xl-wxee abnormality. I could not look at the patient's fundus. GENERAL: He is moderately obese individual. HEENT: He does not have any hearing or vision problem. He has no dysmorphic feature of eyes. CARDIOVASCULAR: Cardiac examination is positive for pacemaker. PULMONARY: There is no respiratory difficulty. NECK: No thyroid mass. VITAL SIGNS: His blood pressure is 141/64, respirations 18, pulse is 70, temperature 98.1. LABORATORY DATA: White count is 13.7. GFR is only 34. He did have a CT scan of the head on admission, which was reviewed, does not show any acute changes. His pulses appear to be palpable. His sed rate is only 2. IMPRESSION AND PLAN: I am not sure what the patient's episode was from. Looks like he was hypotensive when he came in that may have contributed to his symptoms. His shoulder problem is longstanding and need to be addressed and I will suggest doing an orthopedic consult. I will get an EEG done, but I do not think the etiology is neurological. I will not get a CT angio done because kidney function is borderline and he has a pacemaker, so that most likely preclude the MRI, but I will suggest asking nailer operator to evaluate this patient, especially because he was hypotensive when he came in and they can also interrogate his pacemaker. I discussed all of it with the patient in detail and the patient's and they are agreeable with this plan. <ELECTRONICALLY SIGNED> By: Andres Canales MD 12/04/20 1232 0822 [id number] Canales MD /nt
== END 2020-12-02 17:52 | disposition home or self-care (01) | DRG 100 ==
LOC: M.ERS 10:31 → M.2W 11:49 → M.TBA-ER 11:49 → M.2W 19:54
PROVIDERS: Family Medicine; ADMIT Internal Medicine; ATTEND Internal Medicine
DX: G40.89 Other seizures (principal); N17.0 Acute kidney failure with tubular necrosis; I42.9 Cardiomyopathy, unspecified; G81.94 Hemiplegia, unspecified affecting left nondominant side; G83.84 Todd's paralysis (postepileptic); I25.10 Atherosclerotic heart disease of native coronary artery without angina pectoris; K25.9 Gastric ulcer, unspecified as acute or chronic, without hemorrhage or perforation; K21.9 Gastro-esophageal reflux disease without esophagitis; I35.0 Nonrheumatic aortic (valve) stenosis; E78.5 Hyperlipidemia, unspecified; I10 Essential (primary) hypertension; Z20.822 Contact with and (suspected) exposure to COVID-19; Z90.49 Acquired absence of other specified parts of digestive tract; Z79.899 Other long term (current) drug therapy; Z79.82 Long term (current) use of aspirin; Z87.891 Personal history of nicotine dependence